=== PATIENT | male | born 1990 | race African-American/Black ===

== ENCOUNTER 2019-10-12 01:41 | Emergency (ER) | payer OTHER ==
[~2019-10-12] VITALS: Ht 170.2 cm; Wt 68.0 kg
[~2019-10-12 01:41] MED LIST: AMOXICILLIN 50500 M1 PO; IBUPROFEN 600600 M1 PO; MAGIC MOUTHWASH SWISH&SPIT
[2019-10-12 01:58] LABS: URINE BILIRUBIN NEGATIVE (Negative); URINE BLOOD NEGATIVE (Negative); URINE CLARITY CLEAR; URINE COLOR YELLOW; URINE GLUCOSE-RANDOM* NEGATIVE (Negative); URINE KETONES NEGATIVE (Negative); URINE LEUKOCYTES-REFLEX NEGATIVE (Negative); URINE NITRITE-REFLEX NEGATIVE (Negative); URINE PROTEIN (DIPSTICK) NEGATIVE (Negative); URINE SPECIFIC GRAVITY 1.025 (1.005-1.035); URINE UROBILINOGEN 0.2 E.U./dl (0.2-1.0)
[2019-10-12 02:25] VITALS: BP 146/94
== END 2019-10-12 02:25 | disposition home or self-care (01) ==
LOC: ER 01:41
PROVIDERS: Emergency Medicine
DX: R36.9 Urethral discharge, unspecified (principal); F17.210 Nicotine dependence, cigarettes, uncomplicated

== ENCOUNTER 2021-07-08 13:06 | Emergency (ER) | payer OTHER ==
[~2021-07-08] VITALS: Ht 170.2 cm; Wt 90.7 kg
[2021-07-08 13:11] VITALS: BP 152/93
[2021-07-08] MEDS ORDERED: MEDROLDOSEPACK PO (15:01)
[2021-07-08] MEDS ORDERED: PROAIR HFA8.5 GM INH (15:01)
== END 2021-07-08 15:25 | disposition home or self-care (01) ==
LOC: ER 13:06
PROVIDERS: Nurse Practitioner
DX: J45.901 Unspecified asthma with (acute) exacerbation (principal); Z20.822 Contact with and (suspected) exposure to COVID-19; R06.00 Dyspnea, unspecified; F17.210 Nicotine dependence, cigarettes, uncomplicated; Z91.041 Radiographic dye allergy status